=== PATIENT | female | born 1975 | race Caucasian/White ===

== ENCOUNTER 2020-10-03 19:23 | Emergency (ER) | payer OTHER ==
[2020-10-03 19:47] VITALS: BP 126/64; PULSE 76; TEMP 98.2; BMI 26.6
== END 2020-10-03 20:15 | disposition home or self-care (01) ==
LOC: JER 19:23
DX: H11.31 Conjunctival hemorrhage, right eye (principal)
CPT/HCPCS: 99283-25

== ENCOUNTER 2021-10-21 10:39 | Emergency (ER) | payer OTHER ==
[2021-10-21 11:53] VITALS: BP 100/78; PULSE 76; TEMP 98.3; BMI 23.3
[2021-10-21 12:35] LABS: EPI CELLS 2 /uL (0-25.1); HCG,QUALITATIVE URINE Negative; HYALINE CASTS 0 /uL (0-3.1); PH,URINE 7.5 (5.0-8.0); URINE APPEARANCE CLEAR; URINE BACTERIA 241 /uL (0-1359); URINE BILIRUBIN NEGATIVE (NEGATIVE); URINE COLOR YELLOW; URINE GLUCOSE (UA) NEGATIVE (NEGATIVE); URINE KETONE NEGATIVE (NEGATIVE); URINE LEUK ESTERASE 2+ (NEGATIVE); URINE NITRITE NEGATIVE (NEGATIVE); URINE PROTEIN NEGATIVE (NEGATIVE); URINE RBC 19 /uL (0-23.9); URINE UROBILINOGEN 0.2 mg/dL (0.2-1.0); URINE WBC 191 /uL (0-25.8)
== END 2021-10-21 13:31 | disposition home or self-care (01) ==
LOC: JER 10:39
DX: N30.01 Acute cystitis with hematuria (principal)
CPT/HCPCS: 81003; 84703; 87086; 87186; 99283-25

== ENCOUNTER 2023-12-31 05:15 | Emergency (ER) | payer OTHER ==
[2023-12-31 05:26] VITALS: BP 101/57; PULSE 75; RESP 15; TEMP 97.8; BMI 23.3
[2023-12-31] MEDS ORDERED: DEXAMETHASONE SOD PHOSPHATE 10 MG/1 ML VIAL ONE (05:55)
[2023-12-31] MEDS: DEXAMETHASONE SOD PHOSPHATE 10 MG/1 ML VIAL IM ONE (05:58)
== END 2023-12-31 06:05 | disposition home or self-care (01) ==
LOC: JER 05:15
PROC: 3E023GC Introduction of Other Therapeutic Substance into Muscle, Percutaneous Approach (ICD-10-PCS; principal; 2023-12-31)
DX: R21 Rash and other nonspecific skin eruption (principal); L50.9 Urticaria, unspecified
CPT/HCPCS: 99284-25; J1100

== ENCOUNTER 2025-07-08 19:03 | Emergency (ER) | payer OTHER ==
[2025-07-08 19:12] VITALS: RESP 18; BMI 23.2
[2025-07-08 20:31] LABS: ABSOLUTE IMMATURE GRANULOCYTES 0.03 x10^3/uL (0.0-0.031); BASOPHILS # 0.06 x10^3/uL (0.01-0.08); EOSINOPHIL % 1.8 % (0.7-5.8); EOSINOPHILS # 0.13 x10^3/uL (0.04-0.36); MCHC 32.1 g/dl (32.2-35.5); MEAN CELL VOLUME 90.3 fl (79.4-94.8); MEAN PLT VOLUME 10.9 fl (9.4-12.3); MONOCYTE # 0.47 x10^3/uL (0.24-0.86); MONOCYTE % 6.5 % (4.7-12.5); RDW 12.8 % (12.3-16.6)
[2025-07-08 20:32] LABS: INR 0.95 (0.83-1.09); PROTHROMBIN TIME (PATIENT) 10.4 SEC (9.7-13.0)
[2025-07-08] MEDS: SODIUM CHLORIDE 0.9% 500 ML INFUS.BAG IV ONE (20:32)
[2025-07-08 20:35] LABS: ACTIVATED PTT 27.6 SECONDS (25.2-36.5)
[2025-07-08 20:48] LABS: GLUCOSE,RANDOM 113.0 mg/dL (74-106)
[2025-07-08 20:49] LABS: TOT PROT 6.6 g/dl (6.4-8.2)
[2025-07-08 20:50] LABS: CO2 25.0 mmol/L (21-32)
[2025-07-08 20:51] LABS: ALK PHOS 55.0 U/L (40-150)
[2025-07-08 20:54] LABS: CREATININE 0.67 mg/dL (0.55-1.3); SGOT/AST 19.0 U/L (5-34); SGPT/ALT 11.0 U/L (0-55)
[2025-07-08 20:58] LABS: EPI CELLS 3 /uL (0-25.1); HYALINE CASTS 0 /uL (0-3.1); URINE APPEARANCE CLEAR; URINE BACTERIA 35 /uL (0-1359); URINE BILIRUBIN NEGATIVE (NEGATIVE); URINE COLOR YELLOW; URINE GLUCOSE (UA) NEGATIVE (NEGATIVE); URINE KETONE NEGATIVE (NEGATIVE); URINE LEUK ESTERASE NEGATIVE (NEGATIVE); URINE NITRITE NEGATIVE (NEGATIVE); URINE PROTEIN NEGATIVE (NEGATIVE); URINE RBC 21 /uL (0-23.9); URINE UROBILINOGEN 0.2 mg/dL (0.2-1.0); URINE WBC 1 /uL (0-25.8)
[2025-07-08 21:05] VITALS: BP 102/67; PULSE 71; TEMP 98.1
[2025-07-08 21:17] LABS: HCV DIAGNOSTIC IN-HOUSE W/RFLX NON-REACTIVE (NONREACTIVE); HIV INTERPRETATION NEGATIVE (NEGATIVE)
== END 2025-07-08 22:03 | disposition home or self-care (01) ==
LOC: JER 19:03
DX: R42 Dizziness and giddiness (principal); R53.83 Other fatigue; R11.0 Nausea
CPT/HCPCS: 36415; 80053; 81003; 84703; 85025; 85610; 85730; 86803; 86850; 86900; 86901; 87086; 87389; 93005; 93010; 99284-25